=== PATIENT | female | born 1995 | race Caucasian/White ===

== ENCOUNTER 2016-10-04 18:38 | Emergency (ER) | payer OTHER ==
[2016-10-04 18:47] VITALS: BP 124/74
[2016-10-04 20:48] LABS: Hematocrit 38 % (35-47); Hemoglobin 12.8 g/dl (12.0-16.0); Mean Corpuscular HGB Conc 34 g/dl (31-36); Mean Corpuscular Hemoglobin 31 pg (27-31); Mean Corpuscular Volume 92 fL (80-97); Mean Platelet Volume 9 um3 (7.4-10.4); Red Blood Count 4.14 10^6/ul (4.0-5.4); Red Cell Distribution Width 13 % (10.5-15); White Blood Count 6.7 10^3/ul (3.5-10.8)
[2016-10-04 21:02] LABS: Albumin 4.3 g/dL (3.2-5.2); BUN/Creatinine Ratio 17.6 (8-20); Calcium 9.4 mg/dL (8.6-10.3); EGFR African American 141.9 (>60); EGFR Non-African American 110.3 (>60); Globulin 2.9 g/dL (2-4); Potassium 3.7 mmol/L (3.5-5.0); Total Bilirubin 0.5 mg/dL (0.2-1.0); Total Protein 7.2 g/dL (6.4-8.9)
--- NOTE | 2016-10-04 21:11 | ED ---
Josiane Chapman Michael, scribed for Blue Logan MD on 10/04/16 at 1947 . Complex/Multi-Sys Presentation - HPI Summary HPI Summary: 21 y/o female was referred to the ED by her PCP today. The pt visited her PCP one week ago for abd pain, which was described as bloating. She was dx for gastritis and was prescribed Omeprozole. The pt has been taking the medication for one week without alleviation of her symptoms. She also notes black stool and denies n/v. The pt takes iron pills and did not tell her doctor she takes iron medication when he prescribed her the Omeprozole. - History Of Current Complaint Chief Complaint: EDGeneral Time Seen by Provider: 10/04/16 19:31 Hx Obtained From: Patient, Medical Records Onset/Duration: Gradual Onset, Lasting Weeks, Still Present Timing: Intermittent, Lasting: Severity Currently: Mild Severity Initially: Mild Location: Pain At: - abd Alleviating Factor(s): nothing-Omeprozole is not alleviating symptoms. Associated Signs And Symptoms: Positive: Abdominal Pain, Other - black stool. Negative: Nausea, Vomiting PMH/Surg Hx/FS Hx/Imm Hx Endocrine/Hematology History: Denies: Hx Diabetes Cardiovascular History: Denies: Hx Hypertension, Hx Pacemaker/ICD Respiratory History: Denies: Hx Asthma History: Denies: Hx Renal Disease Sensory History: Denies: Hx Hearing Aid Psychiatric History: Denies: Hx Panic Disorder Infectious Disease History: No Infectious Disease History: Denies: Traveled Outside the [place] in Last 30 Days - Family History Known Family History: Negative: Blood Disorder - Social History Occupation: Student Lives: With Family Review of Systems Negative: Fever Positive: Abdominal Pain, Other - black stool. Negative: Vomiting, Nausea All Other Systems Reviewed And Are Negative: Yes Physical Exam Triage Information Reviewed: Yes Vital Signs On Initial Exam: Initial Vitals Temp Pulse Resp BP Pulse Ox 97.9 F 76 20 124/74 100 10/04/16 18:42 10/04/16 18:42 10/04/16 18:42 10/04/16 18:42 10/04/16 18:42 Vital Signs Reviewed: Yes Appearance: Positive: Well-Appearing, No Pain Distress Skin: Positive: Warm Head/Face: Positive: Normal Head/Face Inspection Eyes: Positive: MELLY ENT: Positive: Hearing grossly normal Neck: Positive: Supple Respiratory/Lung Sounds: Positive: Clear to Auscultation, Breath Sounds Present Cardiovascular: Positive: RRR Abdomen Description: Positive: Nontender, No Organomegaly, Soft Bowel Sounds: Positive: Present Musculoskeletal: Positive: Strength/ROM Intact Neurological: Positive: Sensory/Motor Intact, Alert, Oriented to Person Place, Time, Normal Gait Psychiatric: Positive: Affect/Mood Appropriate Diagnostics - Vital Signs Vital Signs Temp Pulse Resp BP Pulse Ox 10/04/16 18:42 97.9 F 76 20 124/74 100 - Laboratory Lab Results: Lab Results 10/04/16 10/04/16 Range/Units 20:40 20:40 WBC 6.7 (3.5-10.8) 10^3/ul RBC 4.14 (4.0-5.4) 10^6/ul Hgb 12.8 (12.0-16.0) g/dl Hct 38 (35-47) % MCV 92 (80-97) fL MCH 31 (27-31) pg MCHC 34 (31-36) g/dl RDW 13 (10.5-15) % Plt Count 248 (150-450) 10^3/ul MPV 9 (7.4-10.4) um3 Neut % (Auto) 68.4 (38-83) % Lymph % (Auto) 23.9 L (25-47) % Coleman % (Auto) 5.4 (1-9) % Eos % (Auto) 1.7 (0-6) % Baso % (Auto) 0.6 (0-2) % Absolute Neuts (auto) 4.6 (1.5-7.7) 10^3/ul Absolute Lymphs (auto) 1.6 (1.0-4.8) 10^3/ul Absolute Monos (auto) 0.4 (0-0.8) 10^3/ul Absolute Eos (auto) 0.1 (0-0.6) 10^3/ul Absolute Basos (auto) 0 (0-0.2) 10^3/ul Absolute Nucleated RBC 0 10^3/ul Nucleated RBC % 0 Sodium 136 (133-145) mmol/L Potassium 3.7 (3.5-5.0) mmol/L Chloride 103 (101-111) mmol/L Carbon Dioxide 25 (22-32) mmol/L Anion Gap 8 (2-11) mmol/L BUN 12 (6-24) mg/dL Creatinine 0.68 (0.51-0.95) mg/dL Est GFR ( Amer) 141.9 (>60) Est GFR (Non-Af Amer) 110.3 (>60) BUN/Creatinine Ratio 17.6 (8-20) Glucose 88 (70-100) mg/dL Calcium 9.4 (8.6-10.3) mg/dL Total Bilirubin 0.50 (0.2-1.0) mg/dL AST 14 (13-39) U/L ALT 11 (7-52) U/L Alkaline Phosphatase 35 (34-104) U/L Total Protein 7.2 (6.4-8.9) g/dL Albumin 4.3 (3.2-5.2) g/dL Globulin 2.9 (2-4) g/dL Albumin/Globulin Ratio 1.5 (1-3) Lipase 15 (11.0-82.0) U/L Result Diagrams: 10/04/16 20:40 10/04/16 20:40 Lab Statement: Any lab studies that have been ordered have been reviewed, and results considered in the medical decision making process. Re-Evaluation - Re-Evaluation First Eval Change: Improved - results d/w pt Complex Multi-Symp Course/Dx - Diagnoses Provider Diagnoses: Abdominal pain Discharge - Discharge Plan Condition: Stable Disposition: HOME Patient Education Materials: Acute Abdominal Pain (ED) Referrals: Non Staff,Doctor [Primary Care Provider] - Gamaliel Baires MD [Medical Doctor] - Additional Instructions: You should stay with a bland diet while your symptoms are present. Please return to the ED if your symptoms worsen. You can follow up with Dr. Baires- Gastro. The documentation as recorded by the Josiane hardin Michael accurately reflects the service I personally performed and the decisions made by me, Blue Logan MD.
== END 2016-10-04 22:29 | disposition home or self-care (01) ==
LOC: ED 18:38
DX: R10.9 Unspecified abdominal pain (principal)
CPT/HCPCS: 36415; 80053; 83690; 85025; 99282